=== PATIENT | male | born 1945 | race Caucasian/White ===

== ENCOUNTER 2020-10-16 08:12 | Day surgery (SDC) | payer OTHER ==
[~2020-10-16] VITALS: Ht 180.3 cm; Wt 99.4 kg
[~2020-10-16 08:12] MED LIST: LOSA25 PO; ZOCOR20 MG PO
[2020-10-16] MEDS ORDERED: TELM80 PO (08:42)
--- NOTE | 2020-10-16 08:50 | NUR ---
10/16/20 0850 Christelle River CALL LIGHT WITHIN REACH
[2020-11-22] MEDS ORDERED: ZOCOR20 MG PO (10:43)
[2020-11-22] MEDS ORDERED: MICARDIS HCT 81 EAC1 PO (10:43)
[2020-11-22] MEDS ORDERED: MULTIPLE VITAM1 EACH PO (10:43)
[2020-11-22] MEDS ORDERED: Levitra20 MG (10:43)
== END 2020-10-16 10:30 | disposition home or self-care (01) ==
LOC: ORSCSDS 08:12
PROVIDERS: Ophthalmology
PROC: 08RJ3JZ Replacement of Right Lens with Synthetic Substitute, Percutaneous Approach (ICD-10-PCS; principal; 2020-10-16 09:15)
DX: H25.11 Age-related nuclear cataract, right eye (principal); I10 Essential (primary) hypertension; Z79.899 Other long term (current) drug therapy
CPT/HCPCS: J2001; J2250; J3010; J3301; J7040; V2632

== ENCOUNTER 2020-11-29 08:30 | Day surgery (SDC) | payer OTHER ==
[~2020-11-29] VITALS: Ht 180.3 cm; Wt 98.2 kg
[~2020-11-29 08:30] MED LIST changes: +Levitra20 MG; +MICARDIS HCT 81 EAC1 PO; +MULTIPLE VITAM1 EACH PO; +TELM80 PO
== END 2020-11-29 10:32 | disposition home or self-care (01) ==
LOC: ORSCSDS 08:30
PROVIDERS: Ophthalmology
PROC: 08RK3JZ Replacement of Left Lens with Synthetic Substitute, Percutaneous Approach (ICD-10-PCS; principal; 2020-11-29 10:00)
DX: H25.12 Age-related nuclear cataract, left eye (principal); I10 Essential (primary) hypertension; E66.9 Obesity, unspecified; Z68.30 Body mass index [BMI] 30.0-30.9, adult; K21.9 Gastro-esophageal reflux disease without esophagitis; Z79.899 Other long term (current) drug therapy
CPT/HCPCS: A9270; J2001; J2250; J3010; J3301; J7040; V2632

== ENCOUNTER 2025-06-09 07:13 | Day surgery (SDC) | payer OTHER ==
[~2025-06-09] VITALS: Ht 180.3 cm; Wt 99.3 kg
[~2025-06-09 07:13] MED LIST changes: +Bupivacaine 0.5% W/EPI 1:200000 SDV 30 ML Vial ONE
[2025-06-09] MEDS ORDERED: ASPIRIN REGIMEN81 MG PO (07:34)
[2025-06-09] MEDS ORDERED: AMLODIPINE BESYL5 MG PO (07:38)
[2025-06-09] MEDS ORDERED: TAMSULOSIN HCL0.4 M1 PO (07:39)
[2025-06-09] MEDS ORDERED: CYCL10 PO (07:40)
[2025-06-09] MEDS ORDERED: CeFAZolin Sodium 2,000 MG VIAL ONE (08:37)
[2025-06-09] MEDS ORDERED: FentaNYL Citrate 50 MCG/ML 2 ML Injection ONE (08:43)
--- NOTE | 2025-06-09 08:57 | NUR ---
06/09/25 0856 Nissa Ellison POPLITEAL BLOCK STARTED AT 0846. PROCEDURE ENDED AT 0851. PT TOLERATED WELL. VSS.
[2025-06-09] MEDS ORDERED: Metoclopramide HCl 5MG / ML 2ML Vial ONE (09:21)
[2025-06-09] MEDS ORDERED: Ondansetron HCl 2 MG / ML 2ML Vial ONE (09:21)
[2025-06-09] MEDS ORDERED: Sugammadex Sodium 200 MG/2ML SDV (100 MG/ML) ONE (09:35)
[2025-06-09 10:07] VITALS: BP 120/60
== END 2025-06-09 10:55 | disposition home or self-care (01) ==
LOC: ORSCSDS 07:13
PROVIDERS: Podiatrist Foot & Ankle Surgery
PROC: 0QSJ04Z Reposition Right Fibula with Internal Fixation Device, Open Approach (ICD-10-PCS; principal; 2025-06-09 08:30)
DX: S82.61XA Displaced fracture of lateral malleolus of right fibula, initial encounter for closed fracture (principal); W01.0XXA Fall on same level from slipping, tripping and stumbling without subsequent striking against object, initial encounter; I10 Essential (primary) hypertension; K21.9 Gastro-esophageal reflux disease without esophagitis; Z79.899 Other long term (current) drug therapy
CPT/HCPCS: A6253; C1713; J0690; J2405; J2704; J2765; J3010; J7120